=== PATIENT | female | born 1990 | race Caucasian/White ===

== ENCOUNTER 2017-10-25 17:17 | Emergency (ER) | payer OTHER ==
[~2017-10-25] VITALS: Ht 165.1 cm; Wt 72.6 kg
[~2017-10-25 17:17] MED LIST: CLEOCIN150 MG PO; CLINDAMYCIN150 MG PO; FE-TABS325 MG; FLEXERIL5 MG PO; MOTRIN800 MG; NAPROSYN500 MG PO; NKHM; Peridex 473 ML473 ML PO; TRAMADOL HCL50 MG PO; ULTRAM50 MG PO
[2017-10-25 17:23] VITALS: BP 125/93
[2017-10-25] MEDS ORDERED: CYCLOBENZAPRINE5 M3 PO (18:45)
[2017-10-25] MEDS ORDERED: NAPROSYN500 MG PO (18:46)
== END 2017-10-25 18:52 | disposition home or self-care (01) ==
LOC: ED 17:17
DX: S39.012A Strain of muscle, fascia and tendon of lower back, initial encounter (principal); F17.200 Nicotine dependence, unspecified, uncomplicated; M54.2 Cervicalgia; M25.512 Pain in left shoulder; Z88.1 Allergy status to other antibiotic agents; V49.88XA Car occupant (driver) (passenger) injured in other specified transport accidents, initial encounter; Y93.89 Activity, other specified; Y92.413 State road as the place of occurrence of the external cause; Y99.9 Unspecified external cause status

== ENCOUNTER 2019-04-04 14:38 | Inpatient (IN) | payer OTHER ==
[~2019-04-04] VITALS: Ht 172.7 cm; Wt 73.2 kg
[2019-04-04] VITALS (29 sets, daily range): BP systolic 72–111; BP diastolic 20–58
--- NOTE | ~2019-04-04 | CON ---
[place], [place] REPORT OF CONSULTATION NAME: SADIE LINDA UNIT #: [id number] ROOM: [facility] DOCTOR: ERIK BARNHART MD BIRTHDATE: [birth year] DOS: 04/05/2019 PULMONARY CONSULTATION, EVALUATION AND MANAGEMENT CONSULTATION REQUESTED BY: Dr. Hari Dunlap. REASON FOR CONSULTATION: For assessment of abnormal respiratory symptoms, leukocytosis, abdominal pain, and acute kidney injury. HISTORY OF PRESENT ILLNESS: A 29-year-old white female patient who has not been able to give me any history during the assessment. History contained documented to assess the patient documentation by the other physician note and the nurse's notes. She has been admitted to the hospital on 04/04/2019 under the care of Dr. Hari Dunlap, was brought to the hospital, was noted significant lethargy with tachycardia and significant hypotension and fever. She has been brought to the hospital by the boyfriend with known history of intravenous drug use. The patient with history of hepatitis C known and also previously treated in rehabilitation. She has been noted with intermittent injection of the heroin. The last heroin injection was reported about 3 days ago. She has also been noted with other illicit drug use as well. She has not been able to give any history. She has been reported symptoms of nausea, vomiting, complaining of pain with tenderness, which is noted in the abdomen. Severe hypotension was noted. She has been given intervenous fluid and also acute kidney injury was also noted. She has been coughing and expectorating moderate sputum per the nursing staff. REVIEW OF SYSTEMS: Cannot be completed. PAST MEDICAL HISTORY: Noted history of illicit drug use including heroin reported. PAST SURGICAL HISTORY: Noted as no known major surgeries except teeth extraction. SOCIAL HISTORY: Unknown, but has been reported with history of tobacco use and history of illicit drug use including intravenous heroin use. HOME MEDICATIONS: Not reported. CURRENT MEDICATIONS: Which has been administered on this hospitalization were noted, intravenous fluids administration. Intravenous vancomycin, IV Zosyn, and p.r.n. use of Ativan. Intravenous Levophed. Heparin 5000 international units b.i.d. for deep venous thrombosis prophylaxis and some other p.r.n. meds. DRUG ALLERGIES: REPORTED ALLERGY TO PENICILLIN; HOWEVER, THE EXACT SIDE EFFECTS WERE UNKNOWN. PHYSICAL EXAMINATION: GENERAL: A 29-year-old female patient noted well-developed, well-nourished. Eyes were closed. Opens eyes briefly, does not answer the question, holding her [place], [place] REPORT OF CONSULTATION NAME: ASDIE LINDA UNIT #: [id number] ROOM: [facility] DOCTOR: EDUARDO GALICIA MD,ERIK BIRTHDATE: [birth year] head ____ with some pain. Heart rate recorded by the nursing staff. Height of 5 feet 8 inches, weight 161 pounds, BMI 24.5. VITAL SIGNS: For the patient that has been recorded a T-max noted as 101.8 degrees Fahrenheit on admission, later intermittent low-grade fever noted less than 100 degrees Fahrenheit, respiratory rate recorded 14-21, heart rate noted 138 on admission The heart rate recorded this morning at 8 o'clock is 85, blood pressure was recorded as 80/56 on admission where mean arterial pressure this morning noted as 61. At the time of the assessment, pulse oxygen saturation at rest on room air is 98% saturation. HEENT: Dryness of the oral mucosa. NECK: Supple. Head was atraumatic. CARDIOVASCULAR: S1, S2 was audible. LUNGS: Noted essentially decreased breath sounds. ABDOMEN: Bowel sounds are present, but tender, noted superficial palpation. EXTREMITIES: Noted without any edema, clubbing, or cyanosis. The needle track santos noted with a small area of black eschar formation of the left upper extremity. MUSCULOSKELETAL: Without any gross deformities. CENTRAL NERVOUS SYSTEM: The patient is moving her extremities on will, difficult to do further [employer]IAISON examination because of change in mental status. LABORATORY DATA: I assessed with the patient. The beta hCG was noted negative yesterday on admission. Lactic acid noted at 6.2, variably elevated, 2.3 lactic acid noted as lowest one later on. The PT, PTT was noted as normal. PT/INR, PTT mildly elevated at 32. CBC that was done on 04/04/2019, WBC count was noted 16.3, hemoglobin 11.3, platelet count ____. X-ray of the left forearm was completed, does not show any acute abnormalities. CMP that was done on 04/04/2019 on admission, BUN 21, creatinine 2.98, sodium 135, potassium 3.6. CO2 was 24. Mild elevation of anion gap yesterday was noted as 38. CBC of this morning: WBC count elevated at 40.2, hemoglobin 9.7, platelet 187,000. The CMP that was done this morning, BUN of 37, creatinine 2.65. Electrolytes otherwise noted as normal potassium. CO2 was 19. Phosphorus was 5.0. Anion gap of 16. Chest x-ray that was done 1 view on 04/04/2019 was noted without any acute visible pulmonary abnormalities. IMPRESSION: 1. The patient will be currently admitted to the hospital, history of chronic medications for the illicit drug use. The patient reported with altered mental status. Urine drug toxicology was noted positive drug screen as amphetamines and benzodiazepines as well. 2. Severe hypotension related to most likely volume depletion with acute kidney injury as well as vasodilatation with possibility of acute sepsis. The original sepsis unknown at the present time. 3. Abdominal pain, symptoms of nausea or vomiting. Noted with possibility of withdrawal from the narcotics medication would be considered in differential diagnosis including ruling out any abnormal pathology of the abdomen with lactic acidosis. 4. The patient with a history of chronic illicit drug use. 5. The HIV status was tested as negative in yesterday labs, already available. 6. History of nicotine abuse as well. [place], [place] REPORT OF CONSULTATION NAME: SADIE LINDA UNIT #: [id number] ROOM: [facility] DOCTOR: EDUARDO GALICIA MD,[facility] BIRTHDATE: [birth year] 7. Elevation of lactic acidosis secondary to lactic acid, hypotension, and possibility of severe sepsis. PLAN OF MANAGEMENT: Continue intravenous fluids. Monitor urinary output, was noted about 500 mL output in the past several hours, but noted ____ previously per nursing staff. Titrate the vasopressor to maintain a mean of 65 or greater. The patient has been already started on broad spectrum intravenous antibiotic coverage of Staph aureus and gram-negative infection. She has been ordered CT scan of the abdomen and pelvis, which was pending to be done today. Keep the patient n.p.o. until the acute abdominal pathology is excluded. DVT prophylaxis, continue to monitor kidney function to avoid any fluid overload because of current acute kidney injury. Leukocytosis will be monitored. Monitor all the culture results of the blood. Ordered the sputum culture as well as urine culture as well. Supportive care, other therapy, plan of management, additional treatment changes will be done based on progression of the illness. Overall prognosis at this time is guarded. Thanks for allowing me to participate in the care of this patient. ERIK CLARK MD CM:CONSTR:REPORT OF CONSULTATION 1705 04/06/19 0039 interface
--- NOTE | ~2019-04-04 | EKG ---
[place], [place] ELECTROCARDIOGRAM REPORT NAME: SADIE LINDA UNIT #: [id number] ROOM: [facility] DOCTOR: WALDO DRAFT REPORT BIRTHDATE: [birth year] [facility] Test Date: 2019-04-04 Test Time: 15:13:07 Pat Name: SADIE LINDA Department: Room: [facility] Gender: F [employer]her Machine Operator: : 1990 Requested By: BERNABE DE LUNA PA-C Order Number: [id number] Reading MD: Dione Pugh MD Measurements Intervals [place] Rate: 117 P: 66 NM: 149 QRS: 72 QRSD: 82 T: 44 QT: 304 QTc: 424 Interpretive Statements Sinus tachycardia ST elev, probable normal early repol pattern No previous ECG available for comparison Electronically Signed On 04-06-2019 14:27:08 PST by Dione Pugh MD CM:EKGRPT:ELECTROCARDIOGRAM REPORT [id number] BERNABE DE LUNA PA-C EPIPHANY DRAFT REPORT BERNABE DE LUNA PA-C
[~2019-04-04 14:38] MED LIST changes: +CEFUROXIME AXE500 MG PO; +CYCLOBENZAPRINE5 M3 PO
[2019-04-04 15:22] LABS: HEMATOCRIT 38.1 % (37.0-47.0); HEMOGLOBIN 11.3 g/dl (12.0-16.0); MEAN CELL VOLUME 74.4 fl (81.0-99.0); MEAN CORPUSCULAR HGB 22.1 pg (27.0-31.0); MEAN CORPUSCULAR HGB CONC 29.7 g/dl (33.0-37.0); MEAN PLATELET VOLUME 10.4 fl (9.6-12.3); PLATELET COUNT AUTOMATED 140 10*3/uL (130-400); RED BLOOD COUNT 5.12 10*6/uL (4.10-5.10); RED CELL DISTRI WIDTH 16.9 % (0-14.5); WHITE BLOOD COUNT 16.3 10*3/uL (4.8-10.8)
[2019-04-04 15:34] LABS: ACT PARTIAL THROMBO TIME 32.6 SECONDS (20.0-32.1); INTERNATIONAL NORM RATIO 1.1 (2.0-3.5)
[2019-04-04 15:45] LABS: OVALOCYTES MODERATE; TOTAL CELLS COUNTED 100 #CELLS
[2019-04-04 15:46] LABS: BURR CELLS FEW; PLATELET SUFFICIENCY NORMAL (NORMAL)
[2019-04-04 16:38] LABS: ALBUMIN 3.1 gm/dl (3.1-4.5); ALKALINE PHOSPHATASE 111 U/L (45-117); BUN 21 mg/dl (7-24); CHLORIDE 100 mmol/L (98-107); CREATININE 2.98 mg/dL (0.55-1.02); LIPASE 86 U/L (73-393); POTASSIUM 3.6 mmol/L (3.5-5.1); SGOT/AST 38 IU/L (3-35); SGPT/ALT 26 U/L (12-78); SODIUM 135 mmol/L (136-145); TOTAL PROTEIN 7.4 gm/dL (6.4-8.2)
[2019-04-04 16:54] LABS: TROPONIN I < 0.015 ng/ml (<0.045)
[2019-04-04 22:26] LABS: BILIRUBIN NEGATIVE (NEGATIVE); BLOOD 2+ (NEGATIVE); CLARITY CLOUDY (CLEAR); COLOR YELLOW (YELLOW); GLUCOSE NEGATIVE (NEGATIVE); KETONE NEGATIVE (NEGATIVE); LEUKO ESTERASE 2+ (NEGATIVE); NITRITE NEGATIVE (NEGATIVE); SPECIFIC GRAVITY 1.025 (1.005-1.030); UROBILINOGEN 0.2 E.U./dl (0.2-1.0)
[2019-04-04 22:34] LABS: URINE AMPHETAMINES > 1000 (1000ng/ml); URINE BARBITURATES < 200 (200ng/ml); URINE BENZODIAZEPINES > 200 (200ng/ml); URINE CANNABINOIDS (THC) < 50 (50ng/ml); URINE COCAINE < 300 (300ng/ml); URINE METHADONE < 300 (300ng/ml); URINE OPIATES < 300 (300ng/ml)
[2019-04-04 22:39] LABS: URINE PHENCYCLIDINE < 25 (25ng/ml)
[2019-04-04 23:14] LABS: COARSE GRANULAR CAST 45-50
[2019-04-04 23:20] LABS: RBC 31-40 rbc/hpf (0-2); WBC 41-50 wbc/hpf (0-5)
[2019-04-04 23:21] LABS: BACTERIA 1+
[2019-04-05] VITALS (69 sets, daily range): BP systolic 77–128; BP diastolic 30–82
[2019-04-05 05:09] LABS: ALBUMIN 2.3 gm/dl (3.1-4.5); CREATININE 2.65 mg/dL (0.55-1.02); FREE T4 1.24 ng/dl (0.76-1.46); POTASSIUM 4.1 mmol/L (3.5-5.1)
[2019-04-05 05:14] LABS: THYROID STIM HORMONE (HS) 0.712 uIU/ml (0.358-4.75)
[2019-04-05 06:39] LABS: HEMATOCRIT 32.8 % (37.0-47.0); HEMOGLOBIN 9.7 g/dl (12.0-16.0); MEAN CELL VOLUME 75.2 fl (81.0-99.0); MEAN CORPUSCULAR HGB 22.2 pg (27.0-31.0); MEAN CORPUSCULAR HGB CONC 29.6 g/dl (33.0-37.0); MEAN PLATELET VOLUME 12.4 fl (9.6-12.3); RED BLOOD COUNT 4.36 10*6/uL (4.10-5.10); RED CELL DISTRI WIDTH 17.4 % (0-14.5)
[2019-04-05 06:42] LABS: PLATELET COUNT AUTOMATED 187 10*3/uL (130-400)
[2019-04-05 06:44] LABS: WHITE BLOOD COUNT 40.2 10*3/uL (4.8-10.8)
[2019-04-05 07:27] LABS: TOTAL CELLS COUNTED 100 #CELLS
[2019-04-05 07:28] LABS: MICROCYTOSIS SLIGHT; PLATELET SUFFICIENCY NORMAL (NORMAL)
[2019-04-05 07:29] LABS: TOXIC GRANULATION SLIGHT
[2019-04-10 11:06] LABS: RESULT 1 Candida dubliniensis (.)
[2019-04-11 15:10] LABS: ORGANISM ID, MOLD Final report (.); RESULT 1 Aspergillus niger (.)
[2019-04-14 15:18] LABS: AMPHOTERICIN B MIC SEE REFERENCE REPORT; CASPOFUNGIN MIC SEE REFERENCE REPORT; FLUCONAZOLE MIC SEE REFERENCE REPORT; FLUCYTOSINE MIC SEE REFERENCE REPORT; ITRACONAZOLE MIC SEE REFERENCE REPORT; KETOCONAZOLE MIC SEE REFERENCE REPORT; VORICONAZOLE MIC SEE REFERENCE REPORT; YEAST ID SEE REFERENCE REPORT
== END 2019-04-05 19:19 | disposition left against medical advice (07) | DRG 720 ==
LOC: ED 14:38 → EDHOLD 17:12 → ICCU 17:12
PROVIDERS: Physician Assistant; Student in an Organized Health Care Education/Training Program; ADMIT Internal Medicine
PROC: 05HY33Z Insertion of Infusion Device into Upper Vein, Percutaneous Approach (ICD-10-PCS; principal; 2019-04-04)
PROC: B54MZZA Ultrasonography of Right Upper Extremity Veins, Guidance (ICD-10-PCS; 2019-04-04)
DX: A41.9 Sepsis, unspecified organism (principal); E87.2 Acidosis; N17.9 Acute kidney failure, unspecified; L02.414 Cutaneous abscess of left upper limb; B19.10 Unspecified viral hepatitis B without hepatic coma; B18.2 Chronic viral hepatitis C; F11.10 Opioid abuse, uncomplicated; R65.21 Severe sepsis with septic shock; G92 Toxic encephalopathy; F41.9 Anxiety disorder, unspecified; I95.9 Hypotension, unspecified; R19.7 Diarrhea, unspecified; T50.905A Adverse effect of unspecified drugs, medicaments and biological substances, initial encounter; Z53.21 Procedure and treatment not carried out due to patient leaving prior to being seen by health care provider; Z88.8 Allergy status to other drugs, medicaments and biological substances; Z79.899 Other long term (current) drug therapy; Y92.89 Other specified places as the place of occurrence of the external cause